=== PATIENT | female | born 1935 | race Caucasian/White ===

== ENCOUNTER 2017-07-13 21:35 | Emergency (ER) ==
[2017-07-13 21:52] VITALS: BMI 27.3
--- NOTE | 2017-07-13 21:52 | ED.PDOC ---
General ED Provider: Dr. ELENI PATEL Chief Complaint: Constipation Stated Complaint: Brought to ER per [facility] from [place]. Patent states she was started on narcotics for shoulder fracture and now is constipated despite using laxatives. She was given one suppository this morning and with that had small, hard BM. Time Seen by Physician: 21:53 Mode of Arrival: Ambulance Information Source: Family, Halfway, EMT Exam Limitations: No limitations Primary Care Provider: JONATHAN WHITAKER Nursing and Triage Documentation Reviewed and Agree: Yes Reviewed sepsis parameters & appropriate labs ordered?: No System Inflammatory Response Syndrome: Not Applicable Sepsis Protocol: For patient's 13 years and over: Temp is 96.8 and below OR 101 and greater Pulse >90 BPM Resp >20/minute Acutely Altered Mental Status Are patient's symptoms suggestive of a new infection, such as: -Pneumonia -Skin, Soft Tissue -Endocarditis -UTI -Bone, Joint Infection -Implantable Device -Acute Abdominal Infection -Wound Infection -Meningitis -Blood Stream Catheter Infection -Unknown System Inflammatory Response Syndrome: Not Applicable Review of Systems - Review Of Systems Constitutional: Reports: No symptoms Eyes: Reports: No symptoms Ears, Nose, Mouth, Throat: Reports: No symptoms Respiratory: Reports: No symptoms Cardiac: Reports: No symptoms GI: Reports: Constipated : Reports: No symptoms Musculoskeletal: Reports: No symptoms Skin: Reports: No symptoms Neurological: Reports: Anxiety Endocrine: Reports: No symptoms Hematologic/Lymphatic: Reports: No symptoms All Other Systems: Reviewed and Negative Past Medical History - Past Medical History Previously Healthy: Yes Endocrine: Reports: Hypothyroid, Dyslipidemia Cardiovascular: Reports: Hypertension, CHF, A-Fib Respiratory: Reports: None Hematological: Reports: None Gastrointestinal: Reports: GERD, Other (constipation) Genitourinary: Reports: None Neuro/Psych: Reports: None Musculoskeletal: Reports: None Cancer: Reports: None Other Pertinent Past Medical History: Glaucoma - Surgical History General Surgical History: Reports: None - Family History Family History: Reports: None - Social History Smoking Status: Never smoker Physical Exam - Physical Exam Appearance: Ill-appearing, Well-nourished Ill-appearing: Mild Pain Distress: Mild Eyes: SURY, EOMI, Conjunctiva clear Neck: Supple Respiratory: Airway patent, Breath sounds clear, Breath sounds equal, Respirations nonlabored Cardiovascular: RRR, Pulses normal, No rub, No murmur GI/: Soft, Tender, Bowel sounds hypoactive Musculoskeletal: Normal strength, ROM intact, No edema, No calf tenderness Skin: Warm, Dry, Normal color Neurological: Sensation intact, Motor intact, Reflexes intact, Cranial nerves intact, Alert, Oriented Psychiatric: Anxious Interpretation - Radiology Interpretation Radiology Interpretation By: ED Physician Radiology Results: Positive (fecal statis, no obstruction.) Exam Interpreted: Other (KUB) Re-Evaluation - Re-Evaluation Time of Re-Evaluation: 23:27 Status: Improved (moderate stool with Milk of molases ) Critical Care Note - Critical Care Note Total Time (mins): 0 Course - Course Orders, Labs, Meds: Orders Category Date Time Status Enema [ED ENEMA/RECTAL TUBE] .ONCE EMERGENCY 07/13/17 22:01 Active Enema [ED ENEMA/RECTAL TUBE] .ONCE EMERGENCY 07/13/17 22:33 Active KUB [ABDOMEN 1 VIEW] Stat RADS 07/13/17 21:40 Completed Vital Signs: Temp Pulse Resp BP Pulse Ox 07/13/17 21:36 97 F L 73 20 96/66 96 Departure - Departure Time of Disposition: 22:30 Disposition: HOME SELF-CARE Discharge Problem: Constipation Instructions: Constipation (ED) Condition: Fair Pt referred to PMD for follow-up: Yes IPMP verified?: No Additional Instructions: Push Fluids continue constipation medications Decrease use of Narcotics which can worsen or even cause constipation. increase you Metamucil Capsules to twice a day from once a day Allergies/Adverse Reactions: Allergies No Known Allergies Allergy (Unverified 07/13/17 21:53) Home Medications: Ambulatory Orders Acetaminophen [Pain Relief] 650 mg PO Q4H PRN 07/13/17 Atorvastatin Calcium [Lipitor] 10 mg PO BEDTIME 07/13/17 Cetirizine HCl [All Day Allergy] 10 mg PO BEDTIME PRN 07/13/17 Diltiazem HCl [Cardizem Cd] 240 mg PO DAILY 07/13/17 Diphenhydramine HCl 12.5 mg PO BEDTIME PRN 07/13/17 Docusate Sodium [Colace] 100 mg PO BID 07/13/17 Fluticasone Propionate [Flonase] 2 spray NS DAILY 07/13/17 Furosemide [Lasix Tab] 20 mg PO QDAC 07/13/17 Levothyroxine Sodium 112 mcg PO DAILY 07/13/17 Raloxifene HCl [Evista] 60 mg PO DAILY 07/13/17 Disposition Discussed With: Patient
--- NOTE | 2017-07-13 22:10 | DI ---
Exam: Abdomen one-view History: Constipation FINDINGS: The bowel gas pattern is nonobstructive. Mild - moderate griffin colonic stool retention. No pathologic calcifications over the kidneys are collecting system. Degenerative change of the spine. No acute abnormality of the skeleton. Impression: Non obstructive bowel gas pattern.
[2017-07-14 01:21] VITALS: BP 118/91; TEMP 97.2
== END 2017-07-14 01:15 | disposition home or self-care (01) ==
LOC: ED 21:35
DX: K59.00 Constipation, unspecified (principal); Z79.899 Other long term (current) drug therapy; I48.91 Unspecified atrial fibrillation
CPT/HCPCS: 99283